=== PATIENT | female | born 1955 | race Caucasian/White ===

== ENCOUNTER 2018-11-02 06:55 | Inpatient (IN) ==
[2018-11-02] MEDS ORDERED: Metoprolol Tartrate 25 MG Tablet PO ONE (08:00)
[2018-11-02] MEDS ORDERED: Sodium Chlor 0.9% Inj 500 ML IV.CONT ONE (08:00)
[2018-11-02] MEDS ORDERED: Chlorhexidine Gluconate 2% 1 Pack (2 Cloths) TOPICAL ONE (08:00)
[2018-11-02] MEDS ORDERED: ceFAZolin 2 GM IV; once IV.SIG ONE (09:00)
[2018-11-02] MEDS ORDERED: ceFAZolin 1 GM Premix Inj 2 GM/100 ML PIGGYBACK IV.SIG ONE (09:11)
[2018-11-02] MEDS ORDERED: Hydrocortisone Sod Succinate 100 MG Vial ONE (09:20)
[2018-11-02] MEDS ORDERED: Hydrocortisone Sod Succinate 250 MG Vial ONE (09:20)
[2018-11-02] MEDS ORDERED: Bupivacaine/Epinephrine PF Inj 0.5% 30 ML Vial ONE (10:31)
[2018-11-02] MEDS ORDERED: diphenhydrAMINE HCl 12.5 MG/5 ML Elixir UDC PO PRN (11:16)
[2018-11-02] MEDS ORDERED: Post-op Orders (for Pharmacy) OTHER STA (11:16)
[2018-11-02] MEDS ORDERED: Naloxone Inj 0.4 MG/ML Vial IV.PUSH PRN (11:20)
[2018-11-02] MEDS ORDERED: *morphine SULFATE 4 MG/ML PERIprocedure ONLY ONE ×2 (11:26→11:32)
[2018-11-02] MEDS ORDERED: Morphine Inj 4 MG/ML Vial ONE (11:27)
[2018-11-02] MEDS ORDERED: Sugammadex Inj 200 MG/2 ML Vial IV.PUSH ONE (11:27)
[2018-11-02] MEDS ORDERED: fentaNYL Citrate Inj 100 MCG/2 ML Ampul ONE (11:28)
[2018-11-02] MEDS ORDERED: *HYDROmorphone PF Inj 1 MG/ML Ampul PERIprocedural Use ONLY ONE ×2 (11:37→11:53)
[2018-11-02] MEDS ORDERED: Morphine Inj 30 MG/30 ML PCA.VIAL PCA ONE (11:55)
[2018-11-02] MEDS ORDERED: KCL 20 mEq/NACL 0.45% Inj 1,000 ML ONE (12:09)
[2018-11-02] MEDS: KCL 20 mEq/NACL 0.45% Inj 1,000 ML IV.CONT SCH ×2 (12:22→18:37)
[2018-11-02] MEDS: Morphine Inj 30 MG/30 ML PCA.VIAL PCA PRN (12:23)
[2018-11-02] MEDS ORDERED: Enoxaparin Inj 40 MG/0.4 ML Syringe SQ SCH (16:00)
[2018-11-02] MEDS: ceFAZolin 1 GM Premix Inj 1 GM/50 ML PIGGYBACK IV.SIG SCH (17:14)
[2018-11-03] MEDS: ceFAZolin 1 GM Premix Inj 1 GM/50 ML PIGGYBACK IV.SIG SCH ×2 (00:16→09:18)
[2018-11-03] MEDS: KCL 20 mEq/NACL 0.45% Inj 1,000 ML IV.CONT SCH ×3 (02:37→10:53)
[2018-11-03] MEDS: Morphine Inj 30 MG/30 ML PCA.VIAL PCA PRN (06:26)
[2018-11-03 08:22] LABS: Baso # (Auto) 0.1 th/mm3 (0.0-0.2); Baso % (Auto) 0.5 % (0.0-2.0); Eos # (Auto) 0.2 th/mm3 (0.0-0.4); Eos % (Auto) 2.1 % (0.0-4.0); Hematocrit 38.2 % (35.0-46.0); Hemoglobin 12.7 gm/dL (11.6-15.3); Lymph % (Auto) 18.5 % (9.0-44.0); Mean Corpuscular HGB Conc 33.2 % (32.0-36.0); Mean Corpuscular Hemoglobin 29.8 pg (27.0-34.0); Mean Corpuscular Volume 89.6 fL (80.0-100.0); Mean Platelet Volume 10.1 fL (7.0-11.0); Mono # (Auto) 0.8 th/mm3 (0.0-0.9); Mono % (Auto) 7.4 % (0.0-8.0); Neut # (Auto) 7.6 th/mm3 (1.8-7.7); Neut % (Auto) 71.5 % (16.0-70.0); Platelet Count 212 th/mm3 (150-450); Red Blood Count 4.26 mil/mm3 (4.00-5.30); Red Cell Distribution Width 14.2 % (11.6-17.2); White Blood Count 10.7 th/mm3 (4.0-11.0)
[2018-11-03 09:02] LABS: Calcium 8.2 mg/dL (8.5-10.1); Carbon Dioxide 30.9 meq/L (21.0-32.0); Magnesium 2.2 mg/dL (1.5-2.5)
[2018-11-03 09:20] LABS: Potassium 4.2 meq/L (3.5-5.1)
--- NOTE | 2018-11-04 15:47 | P.PNGS ---
Subjective Patient reports: no new complaints, pain is less, tolerating liquids well (Pt denies SOB, chest pain or palpitations, ambulating well denies nausea or pain. ) , no flatus Physical Exam Vital signs: Intake & Output 11/03/18 11/04/18 11/04/18 18:59 06:59 18:59 Intake Total 878 / 878 Balance 878 / 878 Intake: IV 878 / 878 Potassium Chlor 20 mEq/NACL 0. 728 / 728 45% Inj 1,000 ML @ 125 mls/hr IV.CONT .Q8H BRITT Rx#:[id number] Ancef 1 GM Premix Inj 1 gm In 50 / 50 50 ml @ 100 mls/hr IV.SIG Q8H BRITT Rx#:[id number] Flagyl 500 MG Inj 100 ML @ 100 100 / 100 mls/hr IV.SIG Q8H BRITT Rx#: [id number] Other: Date of Last Bowel Movement 11/02/18 Narrative: GENERAL: SKIN: Warm and dry. HEAD: Normocephalic. EYES: No scleral icterus. No injection or drainage. NECK: Supple, trachea midline. No JVD or lymphadenopathy. CARDIOVASCULAR: Regular rate and rhythm without murmurs, gallops, or rubs. RESPIRATORY: Breath sounds equal bilaterally. No accessory muscle use. GASTROINTESTINAL: Abdomen soft, normal post operative tenderness, laparoscopic sites WNL, mildly distended. MUSCULOSKELETAL: No cyanosis, or edema. BACK: Nontender without obvious deformity. No CVA tenderness. Results - Labs 11/03/18 07:50 11/03/18 07:50 Assessment and Plan - Plan POD #1 status post laparoscopic RNY Doing well Continue Hycet, Taking 60 ml every 30 minutes, clear liquid. Advance to full liquid with lunch DC home today if continues to do well. Code Status: full Discussed Condition With: patient and
--- NOTE | 2018-11-07 23:32 | MP ---
cc: Cesar Edwards MD DATE OF OPERATION: 11/02/2018 PREOPERATIVE DIAGNOSIS: Morbid obesity with a body mass index of 45 complicated by essential hypertension. POSTOPERATIVE DIAGNOSES: Morbid obesity with a body mass index of 45 complicated by essential hypertension. PROCEDURE PERFORMED: Laparoscopic Kenn-en-Y gastric bypass, 100 cm Kenn limb, antegastric, antecolic. SURGEON: Cesar Edwards MD SENIOR PROJECT ACCOUNTANT: Jalen Carpenter MD. Dr. Carpenter's assistance was necessary for the procedure due to the complexity of the procedure. Dr. Carpenter assisted with manipulation and exposure during the procedure. The phys assistant provided by [employer] was utilized managing the camera. ANESTHESIA: General endotracheal anesthesia. ESTIMATED BLOOD LOSS: Scant. FINDINGS: Fatty liver. SPECIMENS: None. COMPLICATIONS: None. DESCRIPTION OF OPERATION: The patient was brought to the operating room and placed on the operating table in supine position, bilateral sequential inflation device placed on lower extremities, general anesthesia instituted, antibiotics initiated. The abdomen was prepped and draped sterilely. A point 18-cm distal to the xiphoid in the midline anesthetized with 0.25% Marcaine with epinephrine. The skin incision was made, a 5-mm OptiView port placed under direct vision and pneumoperitoneum was created. Under direct vision a 5-mm left upper quadrant, 12-mm left upper quadrant, 12-mm right upper quadrant and 5-mm right upper quadrant ports were placed. Prior to placement of all ports, the skin and peritoneum were anesthetized with 0.25% Marcaine with epinephrine. The patient's omentum was lifted into the upper abdomen. It was split down the middle to create a path for the Kenn limb. The ligament of Treitz was identified, a point 40 cm distal identified. The small bowel was divided in this region using an Duenweg Flex stapler vascular load reinforced with SeamGuard. The distal segment was brought up for a distance of 100 cm, enterotomy created in this region, enterotomy in the biliopancreatic limb and a [id number] stapled jejunojejunostomy created in the usual manner. The mesenteric defect at the jejunojejunostomy was closed with 2-0 Surgidac suture in a running manner. The patient was placed in reverse Trendelenburg position with the left side up. The Mitali-Flex retractor was placed. The left lobe of the liver was retracted. The angle of His was taken down bluntly, a point 5 cm distal to the GE junction along the lesser curve identified, the lesser sac entered using blunt dissection. The stomach was partitioned horizontally using an Duenweg-Flex stapler blue load, an additional firing taken directed towards the angle of His to completely divide the stomach. A gastrotomy created in the new stomach, enterotomy in the Kenn limb and gastrojejunostomy created, stomal opening of 2 cm. An 18-Albanian orogastric tube was placed across the anastomosis, the defect then closed in two layers of running 2-0 Vicryl. Prior to placement of the second layer, methylene blue instilled through the orogastric tube. There was no evidence of extravasation. Evicel was then placed over the gastrojejunostomy, jejunojejunostomy and all staple lines. The operative field inspected and hemostasis was present. The CO2 was released, all ports were removed. All skin incisions were closed with 4-0 Monocryl. The abdominal wall was cleaned and a sterile dressing placed. The patient was awakened and taken to the recovery room. MD PATTIE Bang/tamie , 10:55 PM , 11:00 PM
== END 2018-11-03 14:48 | disposition home or self-care (01) ==
LOC: HSDI 06:55 → N07 12:46
PROVIDERS: ADMIT Surgery; ATTEND Surgery